=== PATIENT | female | born 2000 | race Caucasian/White ===

== ENCOUNTER → 2021-12-08 | Outpatient (CLI) | payer OTHER, SELFPAY | END | disposition home or self-care (01) | PROVIDERS: PCP Family Medicine; Visit Provider Otolaryngology | DX: J02.9 Acute pharyngitis, unspecified (principal) | CPT/HCPCS: 87070; 87077 ==

== ENCOUNTER → 2022-02-13 | Outpatient (CLI) | payer OTHER, SELFPAY | END | disposition home or self-care (01) | LOC: LABSPEC 15:26 | PROVIDERS: PCP Family Medicine; Referring Provider Otolaryngology; Visit Provider Otolaryngology | DX: J03.90 Acute tonsillitis, unspecified (principal) | CPT/HCPCS: 87070 ==

== ENCOUNTER 2023-09-03 02:34 | Emergency (ER) | payer OTHER, SELFPAY ==
[2023-09-03 02:35] VITALS: BP 153/98; PULSE 133; RESP 18; TEMP 38.4; O2SAT 100; BMI 40.4
[2023-09-03 02:40] VITALS: BP 153/98; PULSE 128; RESP 18; TEMP 38.4; O2SAT 99
--- NOTE | 2023-09-03 02:57 | CT_ITS ---
STUDY: CTA CHEST REASON FOR EXAM: Female, 23 years old patient with chest pain with inspiration. RADIATION DOSAGE (If Supplied By Facility): CTDIvol = ( 11.38 ) mGy, DLP = ( 512.72 ) mGycm TECHNIQUE: The examination was performed with the intravenous administration of 100 mL of IV Isovue-370. Post-processing of the angiographic images was performed, with multiplanar reformation and 3D reconstruction. Individualized dose optimization techniques were used for this CT. COMPARISON: None. FINDINGS: Normal enhancement of the main pulmonary artery and right and left pulmonary arteries. There is limited enhancement of the bilateral peripheral pulmonary arteries. There is no demonstrated pulmonary embolism. Normal thoracic aorta and visualized great vessels. There is no demonstrated aortic dissection. Normal heart and pericardium. Normal mediastinum. Normal hilar regions. Normal visualized trachea and bronchi. The lungs are well expanded. Normal pulmonary parenchyma. Normal pleura. Normal chest wall structures. Normal osseous structures. There is hepatic steatosis.. CT/CTA Chest W/WO Contrast IMPRESSION: No CTA demonstrated pulmonary embolism or arterial dissection. Electronically Signed: Hyacinth Suarez MD at 5:04 EDT ,
--- NOTE | 2023-09-03 02:57 | EKG12_ITS ---
Test Reason : PALP Blood Pressure : / mmHG Vent. Rate : 124 BPM Atrial Rate : 124 BPM P-R Int : 144 ms QRS Dur : 082 ms QT Int : 292 ms P-R-T Axes : 044 062 039 degrees QTc Int : 419 ms Sinus tachycardia Otherwise normal ECG Confirmed by Talat Castillo ([id number]), primer expeditor and drier BALJIT FORTUNE ([id number]) on 09/03/2023 2:10:54 PM Referred By: BAYLEE Confirmed By:Talat Castillo
--- NOTE | 2023-09-03 03:15 | EX.ED.DYSGE1 ---
HPI History of Present Illness Chief Complaint: Palpitations Informant: patient and spouse/S.O. Narrative Narrative: Patient is a 23-year-old female with remote history of palpitations who has verapamil to take as needed. She states that with the holiday weekend her and [place] had [place] on the river [place] and she is had some alcohol over the weekend as well. She states that on Sunday she noted increased heart rate and sensation of pain in her upper back which she thought was related to being out on the river. She went to an outside hospital and had a workup performed and was advised that she needs to continue her verapamil. Patient states that this evening she was sleeping when she woke up tremoring/shaking. She states that she then had a bout of vomiting and a bout of diarrhea described as water. She states that during this time she was also feeling her heart was racing and this sensation was similar to the event she had the other night and secondary to this she presents to the hospital for repeat evaluation. The patient denies any recent travel surgery or history of DVT/PE. The patient denies any recent antibiotic use or travel outside the country but does admit to recent water exposure with potential ingestion [facility] Medical History Irregular periods Palpitations Home Medications ?Medication ?Instructions ?Recorded ?Last Taken ?Type ondansetron 4 mg disintegrating 4 mg PO TID PRN nausea and 09/03/23 Unknown Rx tablet vomiting #21 tabs Allergy/AdvReac Type Severity Reaction Status Date / Time No Known Allergies Allergy Verified 09/03/23 03:05 Social History Smoking Status: Never smoker [facility] ED Constitutional Constitutional ED: Reports chills and fever(s) Eyes Eyes: Denies blurry vision or change in vision ENT ENT ED: Denies rhinorrhea or sore throat Cardiovascular Cardiovascular: Reports palpitations and racing heartbeat; Denies chest pain Respiratory/Chest Respiratory/Chest: Denies cough or dyspnea Gastrointestinal Gastrointestinal: Reports diarrhea, nausea and vomiting; Denies abdominal pain Genitourinary Genitourinary ED: Reports dysuria; Denies hematuria or urinary frequency Musculoskeletal Musculoskeletal: Reports back pain Integumentary Denies rash Neurologic Neurologic: Denies headache(s) Hematologic/Lymphatic Hematologic/Lymphatic: Denies easy bleeding or easy bruising EXAM Physical Exam Const Vital Signs: 09/03/23 02:35 09/03/23 02:40 09/03/23 03:40 Temperature 101.1 F H 101.1 F H 101.4 F H Temperature Source Oral Oral Oral Pulse Rate 133 H 128 H 122 H Respiratory Rate 18 18 18 Blood Pressure 153/98 H 153/98 H 136/96 H Blood Pressure Mean 116 116 109 Pulse Ox 100 99 100 Oxygen Delivery Method Room Air Room Air Room Air 09/03/23 04:39 09/03/23 05:00 Temperature 102.1 F H 101.8 F H Temperature Source Oral Temporal Pulse Rate 119 H 123 H Respiratory Rate 18 16 Blood Pressure 135/95 H 138/102 H Blood Pressure Mean 108 114 Pulse Ox 99 98 Oxygen Delivery Method Room Air Room Air Positive well nourished and well developed General Appearance ED: well developed; Negative for pallor HEENT Reports moist mucous membranes HEENT Narrative: No tongue or lip swelling no oral lesions no airway edema or compromise No findings in the posterior pharynx to suggest infection Eyes PERRL and EOMs intact bilaterally General Eye ED: Negative for pale conjunctiva or scleral icterus Neck supple Neck Narrative: No nuchal rigidity or meningeal signs Chest Wall palpation of chest normal Chest Narrative: No bony deformity or crepitance of the chest wall No pain on palpation Resp normal respiratory effort and clear to auscultation bilaterally Cardio regular rhythm Rate: tachycardic and other Other Details: Tachycardic rate with regular rhythm. No murmurs rubs or gallops Radial and carotid pulses are equal and symmetric GI non-tender, non-distended and no masses GI Narrative: Abdomen is soft nontender and nondistended with hyperactive bowel sounds. No voluntary guarding or rigidity or pulsatile mass Auscultation: hyperactive bowel sounds Palpation: soft Back/Spine no CVA tenderness Extremity normal to inspection Extremity Narrative: No asymmetric edema no pitting edema negative Homans' sign bilaterally Neuro oriented x3, CN's II-XII intact bilaterally and no sensory deficits noted Sensorium / Orientation: alert Motor Exam: strength 5/5 throughout Psych mental status grossly normal Skin no rashes or lesions noted, no wounds and No skin turgor normal Skin Narrative: Skin turgor is slightly increased General Skin Exam: Negative for jaundice or pallor MDM MDM MDM Narrative Medical decision making narrative: Patient arrived to the ER febrile and tachycardic but awake and alert in no acute distress. She reported palpitations and there is concern for cardiac arrhythmia such as A-fib a flutter or SVT versus sinus tachycardia. With her tachycardia and low-grade fever report of chest pain there is concern she also has a pulmonary embolus. She reports no risk factors for this but based on her abnormal vitals I elected to perform a CT scan of the chest instead of a D-dimer and CT revealed no acute PE or lung pathology. With her now developing bouts of vomiting and diarrhea and she was recently in a fresh body of water there is concern that she may have ova and parasite such as Giardia or infectious diarrhea such as E. coli. Therefore stool sample will be obtained and sent for culture. Basic labs were obtained to check for causes of her palpitations such as hypokalemia or hyponatremia. Labs revealed no clinically significant findings. Patient's white count is only elevated by 0.5 which is not clinically significant. Patient's lipase is elevated at 125 but with palpation of her abdomen she does not have any pain and therefore with vomiting and diarrhea this is most likely stress response as a cause for the mild elevation. Patient was kept on monitor for entire ER stay and had no cardiac dysrhythmia but remained sinus tachycardia. As a pulmonary embolus and dissection of been ruled out and she is awake and alert and able to tolerate oral fluids I do not feel there is need for admission. Also as initial and follow-up exam does not reveal any signs of pain in the abdomen I do not think there is need for a abdominal CT. Patient's symptoms of vomiting and diarrhea are most likely viral in nature which should be self-limited and therefore she can be discharged home and advised to treat fever Tylenol Motrin and stay well-hydrated History & Record Review Discussion w/independent historian: Patient and Significant other Lab Data Attestation: I reviewed the patient's lab results. Labs: Laboratory Results - last 24 hr 09/03/23 03:22 WBC 11.5 H RBC 5.31 Hgb 14.3 Hct 44.4 MCV 83.6 MCH 26.9 L MCHC 32.2 RDW Std Deviation 39.7 RDW Coeff of Luan 13.1 Plt Count 242 MPV 10.6 Immature Gran % (Auto) 0.300 Neut % (Auto) 87.3 H Lymph % (Auto) 7.2 L [place] % (Auto) 4.4 Eos % (Auto) 0.5 Baso % (Auto) 0.3 Absolute Neuts (auto) 10.1 H Absolute Lymphs (auto) 0.83 Nucleated RBC % 0 PT 13.2 INR 1.0 APTT 23.7 L Sodium 137 Potassium 4.3 Chloride 107 Carbon Dioxide 21.0 Anion Gap 9 BUN 13 Creatinine 0.71 Estim Creat Clear Calc 156.43 Est GFR (MDRD) Af Amer 130 Est GFR (MDRD) Non-Af 108 BUN/Creatinine Ratio 18.4 Glucose 101 Calcium 9.0 Magnesium 1.9 Total Bilirubin 0.60 Direct Bilirubin 0.16 AST 25 ALT 35 Alkaline Phosphatase 104 Total Protein 7.5 Albumin 3.8 Globulin 3.7 Lipase 125 H TSH 1.13 Serum , Qual NEGATIVE Radiography Diagnostic Testing: Clinical Impression(s) from Imaging Studies Chest CTA 09/03/23 02:57 IMPRESSION: No CTA demonstrated pulmonary embolism or arterial dissection. Electronically Signed: Hyacinth Suarez MD at 5:04 EDT Reading Location ID and State: [address] [place] [address] , Service support , Discharge Plan Triage Chief Complaint: Palpitations Other Complaint: Flank Pain ED Provider: Raymond Lewis Dx/Rx/DC Orders Clinical Impression: Sinus tachycardia, Acute nonspecific chest pain with low risk of coronary artery disease, Nausea vomiting and diarrhea, Pyrexia Instructions: Understanding Tachycardia, ED Fever Control (Adult), ED Vomit Diarrhea Nonspec Adult Prescriptions: New ondansetron 4 mg tablet,disintegrating 4 mg PO TID PRN (Reason: nausea and vomiting) Qty: 21 0RF Stand Alone Forms: ED Work / School Excuse Primary Care Provider: Prashanth Summers Referrals: Prashanth Summers, [Primary Care Provider] - Activity Restrictions/Additional Instructions: Your workup shows no abnormal cardiac rhythm or signs of blood clot or lung infection. Your symptoms are most likely due to a viral stomach infection which will last on average 3 days. Continue with Tylenol and/or Motrin for fever control and keep yourself well-hydrated. If you have worsening of symptoms or any further concerns please return for repeat evaluation Print Language: Tunisian Disposition Disposition: Home, Self Care
[2023-09-03] MEDS: 0.9% Normal Saline (1000mL) 1,000 ML 999 ML IV (03:27)
[2023-09-03] MEDS: Acetaminophen 500 MG Tablet 1000 MG PO (03:28)
[2023-09-03 03:31] LABS: Absolute Lymphocyte Count 0.83 X10^3/uL (0.83-4.51); Absolute Neutrophil Count 10.1 X10^3/uL (2.0-7.7); Basophil# 0.03 X10^3/uL; Basophil% 0.3 % (0-1); Eosinophil# 0.06 X10^3/uL; Eosinophils% 0.5 % (0-5); Hematocrit 44.4 % (37-47); Hemoglobin 14.3 g/dL (12.0-15.0); Lymphocyte # 0.83 X10^3/ul (0.83-4.51); Lymphocyte % 7.2 % (19-41); Mean Corp Hgb Conc 32.2 g/dL (32-36); Mean Corpuscular Hgb 26.9 pg (27.0-32.0); Mean Corpuscular Volume 83.6 fL (81-99); Mean Platelet Vol. 10.6 fl (6.2-12.0); Monocyte# 0.51 X10^3/uL; Monocyte% 4.4 % (0-10); NRBC Flagged by Analyzer 0 % (0-5); Neutrophil # 10.05 X10^3/uL (2.7-7.7); Neutrophil % 87.3 % (47-70); Platelet Count 242 K/mm3 (150-450); RBC Distribution Width CV 13.1 % (11.6-14.6); RBC Distribution Width SD 39.7 fl (35.1-43.9); Red Blood Count 5.31 M/mm3 (4.2-5.4); White Blood Count 11.5 K/mm3 (4.4-11.0)
[2023-09-03 03:40] VITALS: BP 136/96; PULSE 122; RESP 18; TEMP 38.6; O2SAT 100
[2023-09-03 03:40] LABS: Partial Thromboplast Time 23.7 Seconds (24.1-36.2); Prothrombin Time (Protime)PT. 13.2 SECONDS (11.7-14.9)
[2023-09-03 03:42] LABS: Internal QC Validated? YES +Cl - CLEAR BKGD; Pregnancy, Serum, hCG Quali. NEGATIVE Negative
[2023-09-03 04:15] LABS: AST(SGOT) 25 U/L (15-37); Alanine Aminotransfer ALT/SGPT 35 U/L (13-56); Albumin, Serum 3.8 g/dL (3.2-5.0); Alkaline Phosphatase 104 U/L (45-117); Anion Gap 9 (5-15); BUN 13 mg/dL (7-18); BUN/Creat Ratio 18.4 RATIO (10-20); Bilirubin, Direct 0.16 mg/dL (0.00-0.30); Chloride 107 mmol/L (98-107); Creatinine, Serum 0.71 mg/dL (0.55-1.02); EST Glomerular Filtration Rate 108 mL/min (>60); Est Glom Filt Rate - Afr Amer 130 mL/min (>60); Estimated Creatinine Clearance 156.43 ml/min; Globulin 3.7 g/dL (2.2-4.2); Glucose 101 mg/dL (74-106); Lipase 125 U/L (13-75); Magnesium 1.9 mg/dL (1.6-2.6); Potassium 4.3 mmol/L (3.5-5.1); Protein, Total 7.5 g/dL (6.4-8.2); Sodium Level 137 mmol/L (136-145); Thyroid Stim Hormone (TSH) 1.13 uIU/mL (0.358-3.74)
[2023-09-03 04:39] VITALS: BP 135/95; PULSE 119; RESP 18; TEMP 38.9; O2SAT 99
[2023-09-03 05:00] VITALS: BP 138/102; PULSE 123; RESP 16; TEMP 38.8; O2SAT 98
[2023-09-03] MEDS: Ibuprofen 600 MG Tablet PO (05:09)
[2023-09-03 05:42] VITALS: BP 131/87; PULSE 124; RESP 16; TEMP 37.9; O2SAT 96
== END 2023-09-03 05:48 | disposition home or self-care (01) ==
PROVIDERS: Emergency Provider Emergency Medicine; PCP Family Medicine; Visit Provider Emergency Medicine
DX: R00.2 Palpitations (principal); R07.9 Chest pain, unspecified; R19.7 Diarrhea, unspecified; R00.0 Tachycardia, unspecified; Z79.899 Other long term (current) drug therapy; R11.2 Nausea with vomiting, unspecified; R50.9 Fever, unspecified
CPT/HCPCS: 71275; 80048; 80076; 83630; 83690; 83735; 84443; 84703; 85025; 85610; 85730; 87177; 87209; 87493; 87506; 93005; 96360; 99284; Q9967; A4216